=== PATIENT | female | born 1975 | race Caucasian/White ===

== ENCOUNTER 2017-09-15 15:40 | Emergency (ER) | payer OTHER ==
[2017-09-15] MEDS ORDERED: ONDANSETRON HCL 4 MG/2 ML SOL IV ONE ×2 (16:48→18:48)
[2017-09-15 16:57] VITALS: RESP 18
[2017-09-15] MEDS ORDERED: SODIUM CHLORIDE 0.9% 1000ML 1,000 ML IV SCH (17:00)
[2017-09-15 17:09] LABS: BASOPHILS % (AUTO) 1 % (0-3); EOSINOPHILS % (AUTO) 1 % (0-9); HEMATOCRIT 46 % (35-47); MEAN CORPUSCULAR HGB CONC 34.8 gm/dl (32.0-36.0); MEAN CORPUSCULAR VOLUME 86 fL (81-99); MONOCYTES % (AUTO) 4.5 % (0-12); NEUTROPHILS % (AUTO) 79.9 % (37-80)
[2017-09-15 17:21] LABS: APPEARANCE,URINE Slightly Cloudy; BILIRUBIN,URINE 1+ (NEGATIVE); COLOR,URINE Dark yellow; GLUCOSE, URINE (UA) NEGATIVE (NEGATIVE); KETONES,URINE 1+ (NEGATIVE); LEUKOCYTE ESTERASE ,URINE NEGATIVE (NEGATIVE); NITRATE,URINE NEGATIVE (NEGATIVE); OCCULT BLOOD,URINE 3+ (NEG-TRACE); PH,URINE 5.5; UROBILINOGEN,URINE 0.2 (0.2-1.0 EU)
[2017-09-15 17:24] LABS: ALBUMIN 3.6 gm/dl (3.4-5.0); CALCIUM 8.9 mg/dl (8.5-10.1); POTASSIUM 4.6 mMol/L (3.5-5.1)
[2017-09-15 17:33] LABS: ICTOTEST,URINE NEGATIVE (NEGATIVE); RBC,URINE 75-80 (0-3AV/HPF); WBC,URINE 0-3 (0-5AV/HPF)
[2017-09-15] MEDS ORDERED: ONDANSETRON HCL 4 MG/2 ML SOL ONE ×2 (17:36→18:50)
[2017-09-15 18:32] VITALS: O2SAT 100
[2017-09-15 19:06] VITALS: BP 117/83; PULSE 71; TEMP 98
== END 2017-09-15 19:08 | disposition home or self-care (01) | DRG 392 ==
LOC: ED 15:40
DX: K31.84 Gastroparesis (principal); R19.7 Diarrhea, unspecified
CPT/HCPCS: 36415; 74000; 80053; 81001; 84703; 85025; 87804; 93005; 96365; 96374; 99284; 99285; J2405

== ENCOUNTER 2018-06-16 19:08 | Observation (INO) | payer OTHER ==
[2018-06-16] MEDS ORDERED: KETOROLAC TROMETHAMINE 30 MG/ML SOL IV ONE (19:18)
[2018-06-16] MEDS ORDERED: KETOROLAC TROMETHAMINE 30 MG/ML SOL ONE (19:19)
[2018-06-16 19:30] LABS: BASOPHILS % (AUTO) 1 % (0-3); EOSINOPHILS % (AUTO) 3 % (0-9); HEMATOCRIT 41 % (35-47); HEMOGLOBIN 13.9 gm/dl (12.0-15.5); LYMPHOCYTES % (AUTO) 37.8 % (10-50); MEAN CORPUSCULAR HEMOGLOBIN 29.1 pg (27.0-32.0); MEAN CORPUSCULAR HGB CONC 33.6 gm/dl (32.0-36.0); MEAN CORPUSCULAR VOLUME 87 fL (81-99); NEUTROPHILS % (AUTO) 50.5 % (37-80)
[2018-06-16 19:39] LABS: CALCIUM 9.2 mg/dl (8.5-10.1); CARBON DIOXIDE 24.9 mEq/L (21-32); CREATININE 0.73 mg/dl (0.60-1.00); POTASSIUM 4.1 mMol/L (3.5-5.1)
[2018-06-16] MEDS ORDERED: SODIUM CHLORIDE 0.9% 1000ML 1,000 ML IV ONE (19:51)
[2018-06-16] MEDS ORDERED: MORPHINE SULFATE 10 MG/ML SOL IV ONE (19:56)
[2018-06-16] MEDS ORDERED: MORPHINE SULFATE 10 MG/ML SOL ONE (19:57)
[2018-06-16] MEDS ORDERED: TAMSULOSIN HYDROCHLORIDE 0.4 MG CAP ONE (20:09)
[2018-06-16] MEDS ORDERED: HYDROMORPHONE 1 MG/ML SYRINGE IV STA (20:41)
[2018-06-16] MEDS ORDERED: HYDROMORPHONE 1 MG/ML SYRINGE ONE (20:42)
[2018-06-16 20:51] LABS: APPEARANCE,URINE Slightly Cloudy; BILIRUBIN,URINE NEGATIVE (NEGATIVE); COLOR,URINE Light yellow; GLUCOSE, URINE (UA) NEGATIVE (NEGATIVE); KETONES,URINE NEGATIVE (NEGATIVE); LEUKOCYTE ESTERASE ,URINE TRACE (NEGATIVE); NITRATE,URINE NEGATIVE (NEGATIVE); OCCULT BLOOD,URINE 3+ (NEG-TRACE); UROBILINOGEN,URINE 0.2 (0.2-1.0 EU)
[2018-06-16 20:59] LABS: BACTERIA NEGATIVE (< 1+); CRYSTALS NEGATIVE (0-3 AVE/HPF); EPITHELIAL CELLS 0-3 (SQUAMOUS); WBC,URINE 0-3 (0-5AV/HPF)
[2018-06-16] MEDS ORDERED: TAMSULOSIN HYDROCHLORIDE 0.4 MG CAP PO SCH (21:00)
[2018-06-16] MEDS ORDERED: LEVOFLOXACIN 500 MG TAB PO ONE (21:11)
[2018-06-16] MEDS ORDERED: LEVOFLOXACIN 500 MG TAB ONE (21:12)
[2018-06-16] MEDS ORDERED: HYDROMORPHONE 1 MG/ML SYRINGE IV PRN (22:16)
[2018-06-16] MEDS: SODIUM CHLORIDE 0.9% 1000ML 1,000 ML IV SCH (22:44)
[2018-06-16] MEDS: ONDANSETRON HCL 4 MG/2 ML SOL IV PRN (22:52)
[2018-06-16] MEDS: KETOROLAC TROMETHAMINE 30 MG/ML SOL IV PRN (22:56)
[2018-06-16 23:55] VITALS: RESP 16
[2018-06-17] MEDS ORDERED: LEVOTHYROXINE SODIUM 50 MCG TAB PO SCH (07:00)
[2018-06-17] MEDS: KETOROLAC TROMETHAMINE 30 MG/ML SOL IV PRN (08:48)
[2018-06-17] MEDS: ONDANSETRON HCL 4 MG/2 ML SOL IV PRN (08:50)
[2018-06-17] MEDS: SODIUM CHLORIDE 0.9% 1000ML 1,000 ML IV SCH (08:58)
[2018-06-17] MEDS ORDERED: AZITHROMYCIN 250 MG TAB PO SCH (09:00)
[2018-06-17] MEDS ORDERED: RANITIDINE HCL 150 MG TAB PO SCH (09:00)
[2018-06-17] MEDS ORDERED: [UNRECOGNIZED DRUG - OTHER] PO SCH (09:00)
[2018-06-17] MEDS ORDERED: VIT D3 PO SCH (09:00)
[2018-06-17] MEDS ORDERED: CALCIUM PHOSPHATE TRIB PO SCH (09:00)
[2018-06-17] MEDS ORDERED: LEVOFLOXACIN 500 MG TAB PO SCH (09:00)
[2018-06-17 09:01] VITALS: BP 112/73; PULSE 63; TEMP 97.8; O2SAT 98
[2018-06-17] MEDS ORDERED: CHOLECALCIFEROL 1,000 IU TAB PO SCH (09:45)
[2018-06-17] MEDS ORDERED: FAMOTIDINE 20 MG TAB PO SCH (09:45)
[2018-06-17] MEDS ORDERED: CALCIUM CARBONATE 500 MG TAB PO SCH (09:45)
[2018-06-17] MEDS ORDERED: TAMSULOSIN HYDROCHLORIDE 0.4 MG CAP PO SCH (21:00)
== END 2018-06-17 11:15 | disposition home or self-care (01) | DRG 392 ==
LOC: ED 19:08 → ACUTE CARE 21:35
PROVIDERS: ADMIT Surgery; ATTEND Surgery
DX: R10.9 Unspecified abdominal pain (principal); N20.1 Calculus of ureter; N39.0 Urinary tract infection, site not specified; R31.9 Hematuria, unspecified
CPT/HCPCS: 36415; 74176; 80048; 81001; 85025; 87088; 96365; 96374; 96375; 99219; 99285; J1885; J2270; J2405; A9270-GY; J1170

== ENCOUNTER 2018-07-08 16:25 | Emergency (ER) | payer OTHER ==
[2018-07-08] MEDS ORDERED: ONDANSETRON HCL 4 MG/2 ML SOL IV ONE ×2 (16:32→17:33)
[2018-07-08] MEDS ORDERED: KETOROLAC TROMETHAMINE 30 MG/ML SOL IV ONE (16:32)
[2018-07-08] MEDS ORDERED: SODIUM CHLORIDE 0.9% 1000ML 1,000 ML IV ONE ×2 (16:32→17:55)
[2018-07-08] MEDS ORDERED: ONDANSETRON HCL 4 MG/2 ML SOL ONE ×2 (16:33→17:34)
[2018-07-08] MEDS ORDERED: KETOROLAC TROMETHAMINE 30 MG/ML SOL ONE (16:33)
[2018-07-08 16:49] LABS: BASOPHILS % (AUTO) 1 % (0-3); EOSINOPHILS % (AUTO) 4 % (0-9); HEMATOCRIT 46 % (35-47); LYMPHOCYTES % (AUTO) 37.6 % (10-50); MEAN CORPUSCULAR HEMOGLOBIN 28.4 pg (27.0-32.0); MEAN CORPUSCULAR HGB CONC 32.4 gm/dl (32.0-36.0); MEAN CORPUSCULAR VOLUME 88 fL (81-99); MONOCYTES % (AUTO) 7.1 % (0-12); NEUTROPHILS % (AUTO) 50.8 % (37-80)
[2018-07-08 16:50] LABS: LACTIC ACID 1.3 mMol/L (0.0-2.0)
[2018-07-08 17:02] LABS: ALBUMIN 3.6 gm/dl (3.4-5.0); BILIRUBIN,TOTAL 0.4 mg/dl (0.2-1.0); CARBON DIOXIDE 23.3 mEq/L (21-32); CREATININE 0.86 mg/dl (0.60-1.00); POTASSIUM 3.8 mMol/L (3.5-5.1); TOTAL PROTEIN 7.8 gm/dl (6.4-8.2)
[2018-07-08] MEDS ORDERED: SODIUM CHLORIDE 0.9% FLUSH 10 ML SOL IV PRN (17:03)
[2018-07-08] MEDS ORDERED: HYDROMORPHONE 1 MG/ML SYRINGE IV PRN (17:03)
[2018-07-08] MEDS ORDERED: HYDROMORPHONE 1 MG/ML SYRINGE ONE ×3 (17:05→18:34)
[2018-07-08] MEDS: HYDROMORPHONE 1 MG/ML SYRINGE IV PRN ×2 (17:37→18:40)
[2018-07-08 18:20] LABS: APPEARANCE,URINE Slightly Cloudy; BILIRUBIN,URINE 1+ (NEGATIVE); COLOR,URINE Brown; GLUCOSE, URINE (UA) NEGATIVE (NEGATIVE); KETONES,URINE TRACE (NEGATIVE); LEUKOCYTE ESTERASE ,URINE NEGATIVE (NEGATIVE); NITRATE,URINE NEGATIVE (NEGATIVE); OCCULT BLOOD,URINE 3+ (NEG-TRACE)
[2018-07-08] MEDS ORDERED: PROMETHAZINE HYDROCHLORIDE 25 MG/ML SOL IV ONE ×2 (18:30)
[2018-07-08] MEDS ORDERED: ACETAMINOPHEN 500 MG 500 MG TAB ONE (18:31)
[2018-07-08] MEDS ORDERED: ACETAMINOPHEN 500 MG 500 MG TAB PO ONE (18:31)
[2018-07-08] MEDS ORDERED: PROMETHAZINE HYDROCHLORIDE 25 MG/ML SOL ONE (18:31)
[2018-07-08 18:38] LABS: BACTERIA 2+ (< 1+); CRYSTALS UNABLE (0-3 AVE/HPF); EPITHELIAL CELLS UNABLE (SQUAMOUS); ICTOTEST,URINE NEGATIVE (NEGATIVE); RBC,URINE TNTC (0-3AV/HPF); WBC,URINE UNABLE (0-5AV/HPF)
[2018-07-08] MEDS ORDERED: ACETAMINOPHEN 1,000 MG/100 ML VIAL IV ONE (18:43)
[2018-07-08] MEDS ORDERED: CEFTRIAXONE 1 GM PDS ONE (19:08)
[2018-07-08] MEDS ORDERED: CEFTRIAXONE 1 GM PDS 1 GM in SODIUM CHLORIDE 0.9% 50 ML 50 ML IV SCH (19:15)
[2018-07-08 20:07] VITALS: BP 117/85; PULSE 65; RESP 20; TEMP 96.2; O2SAT 97
== END 2018-07-08 20:15 | disposition home or self-care (01) | DRG 694 ==
LOC: ED 16:25
DX: N20.1 Calculus of ureter (principal); N39.0 Urinary tract infection, site not specified; R31.9 Hematuria, unspecified
CPT/HCPCS: 74176; 80053; 81001; 85025; 87088; 96365; 96366; 96374; 96375; 99284; 99285; J0696; J1885; J2405; J2550; J1170